=== PATIENT | female | born 1945 | race African-American/Black ===

== ENCOUNTER 2019-04-20 13:47 | Outpatient (CLI) | payer MEDICARE, BC ==
--- NOTE | 2019-04-20 15:45 | RAD ---
2 VIEW ABDOMEN: Date: 04/20/19 Supine and upright views. HISTORY: Right flank pain. FINDINGS: Bowel gas pattern unremarkable. Scattered stool and gas throughout the colon. Small bowel gas is unre markable. There is mild gaseous distention of the stomach. No evidence of free air. No soft tissue ma ss or abnormal calcification. Degenerative spine changes. IMPRESSION: Gaseous distention of the stomach. Unremarkable bowel gas pattern. POS: [facility]
== END 2019-04-20 13:48 | disposition home or self-care (01) ==
LOC: SCSRAD 13:47
PROVIDERS: ATTEND Family Medicine
DX: R10.9 Unspecified abdominal pain (principal); K31.89 Other diseases of stomach and duodenum
CPT/HCPCS: 74019

== ENCOUNTER 2020-01-31 08:09 | Emergency (ER) | payer MEDICARE, BC ==
--- NOTE | 2020-01-31 10:04 | RAD ---
XR Lumbar Spine 2 Or 3 View History: Low back pain Comparison: None. Findings: Moderate levoscoliosis. Severe facet degenerative change with sclerosis and subluxation at L4/L5, 4 mm anterolisthesis. High-grade L2/L3 interspinous narrowing with sclerosis. Bridging lower thoracic anterior osteophytes. Mild L3/L4 and L4/L5 degenerative disc space narrowing with moderate L5/S1 disc space narrowing. Asymmetric left worse than right SI joint degenerative change. Superior pubic symphysis degeneration with sclerosis and large subcortical cysts. Phleboliths in the pelvis. 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 No acute osseous abnormality.
--- NOTE | 2020-01-31 10:10 | RAD ---
RIGHT HIP 2 VIEWS: Date: 01/31/2020 PROVIDED CLINICAL HISTORY: Groin pain. FINDINGS: Vascular calcifications are seen. Lower lumbar spine degenerative changes are partially visualized. N o evidence for fracture or other acute osseous abnormality. Right hip joint space appears preserved. Alignment appears anatomic. IMPRESSION: No evidence for an acute osseous abnormality or significant arthropathy involving the right hip. POS: [facility]
[2020-01-31] MEDS ORDERED: Ketorolac Tromethamine 30 MG/ML VIAL ONE (10:14)
[2020-01-31 10:18] LABS: Bilirubin Negative (Negative); Blood, Urine Negative (Negative); Clarity Clear (Clear); Glucose, Urine (Dipstick) 70 mg/dL (Negative); Ketone, Urine Negative (Negative); Leukocyte Negative Leu/uL (Negative); Nitrite Negative (Negative); Protein, Urine (Dipstick) Negative (Neg-Trace); Specific Gravity, Urine 1.011 (1.002-1.036); Urobilinogen Normal mg/dL (Less than 2)
== END 2020-01-31 12:12 | disposition home or self-care (01) ==
LOC: ERS 08:09
DX: M54.5 Low back pain (principal); E11.9 Type 2 diabetes mellitus without complications; I10 Essential (primary) hypertension; Z79.4 Long term (current) use of insulin; Z79.899 Other long term (current) drug therapy
CPT/HCPCS: 72100; 81003; 87077; 87086; 96372; J1885

== ENCOUNTER 2020-07-29 08:26 | Outpatient (CLI) | payer MEDICARE, BC ==
[2020-07-29 14:33] LABS: #Eosinphils 0.1 10x3/uL (0.0-0.5); #Monocytes 0.4 10x3/uL (0.0-1.1); #Neutrophils 4.9 10x3/uL (1.5-8.4); %Basophils 0.3 % (0.0-2.0); %Eosinophils 0.9 % (0.0-6.0); %Neutrophils 64.7 % (40.0-75.0); Mean Corpuscular HGB CONC 31.7 G/DL (32.0-36.0); Mean Corpuscular Hemoglobin 28.6 PG (27.0-33.0); Mean Corpuscular Volume 90.2 fl (80.0-100.0); Mean Platelet Volume 9.5 fl (7.4-10.4); Platelet Count 280 10x3/uL (130-400); RBC Distribution Width 14.6 % (11.5-14.5); Red Blood Cell (RBC) Count 4.19 10x6/uL (3.90-5.20); White Blood Cell (WBC) Count 7.6 10x3/uL (4.5-11.0)
[2020-07-29 14:54] LABS: ALT (SGPT) 14 U/L (8-55); AST (SGOT) 14 U/L (5-34); Albumin 3.9 g/dL (3.4-4.8); Alkaline Phosphatase 83 U/L (40-110); Anion Gap 14 mmol/L (10-20); BUN (Urea Nitrogen) 23 mg/dL (9.8-20.1); Bilirubin, Total 0.2 mg/dL (0.2-1.2); Calc. Creatinine Clearance 0 mL/min (70-130); Calcium 9.1 mg/dL (7.8-10.44); Carbon Dioxide 24 mmol/L (23-31); Chloride 105 mmol/L (98-107); Globulin 3.2 g/dL (2.4-3.5); Glucose 125 mg/dL (83-110); Potassium 4.5 mmol/L (3.5-5.1); Protein, Total 7.1 g/dL (5.8-8.1); Sodium 138 mmol/L (136-145)
[2020-07-30 06:16] LABS: SARS-CoV-2 PCR by NAA Not Detected (NotDetected)
== END 2020-07-29 08:27 | disposition home or self-care (01) ==
LOC: LABBT 08:26
PROVIDERS: ATTEND Internal Medicine Cardiovascular Disease
DX: Z01.812 Encounter for preprocedural laboratory examination (principal); Z20.822 Contact with and (suspected) exposure to COVID-19
CPT/HCPCS: 80053; 85025; U0003; U0005; 87635

== ENCOUNTER 2020-08-03 09:58 | Day surgery (SDC) | payer MEDICARE, BC ==
[2020-08-01 11:50] VITALS: BMI 31.0
[2020-08-03] MEDS ORDERED: Sodium Chloride 0.9% 10 ML ONE (10:18)
[2020-08-03] MEDS ORDERED: Heparin 0 ML ONE (11:00)
== END 2020-08-03 13:20 | disposition home or self-care (01) ==
LOC: SDC 09:58
PROVIDERS: ATTEND Internal Medicine Cardiovascular Disease
DX: R06.09 Other forms of dyspnea (principal); Z53.09 Procedure and treatment not carried out because of other contraindication; Z88.0 Allergy status to penicillin; Z88.1 Allergy status to other antibiotic agents; Z88.8 Allergy status to other drugs, medicaments and biological substances; Z91.018 Allergy to other foods
CPT/HCPCS: 36416; J1644

== ENCOUNTER 2020-08-05 05:47 | Day surgery (SDC) | payer MEDICARE, BC ==
[2020-08-04 09:34] VITALS: BMI 31.0
[2020-08-05] MEDS ORDERED: Fentanyl 100 MCG/2 ML VIAL ONE (07:44)
[2020-08-05] MEDS ORDERED: Midazolam HCl 2 mg/2 ml Vial ONE (07:44)
[2020-08-05] MEDS ORDERED: Morphine 2 MG/ML VIAL SLOW IVP SCH (09:00)
[2020-08-05] MEDS ORDERED: Morphine 2 MG/ML VIAL ONE (09:03)
[2020-08-05] MEDS ORDERED: Iopamidol 370 76% 100 ML VIAL ONE (09:56)
[2020-08-05] MEDS ORDERED: Acetaminophen/Codeine 30-300mg Tablet ONE (11:39)
[2020-08-05] MEDS ORDERED: Sodium Chloride 0.9% 1,000 ML IV SCH (12:00)
[2020-08-05] MEDS ORDERED: Nitroglycerin 0.4 MG TAB (25 Tab Bottle) SL PRN (12:15)
[2020-08-05] MEDS ORDERED: Acetaminophen/Codeine 30-300mg Tablet PO PRN ×2 (12:15)
[2020-08-05] MEDS ORDERED: Acetaminophen 500 MG TAB ONE (13:46)
[2020-08-05] MEDS ORDERED: Acetaminophen 500 MG TAB PO PRN ×2 (14:36→14:37)
== END 2020-08-05 15:17 | disposition home or self-care (01) ==
LOC: CCL 05:47
PROVIDERS: ATTEND Internal Medicine Cardiovascular Disease
PROC: 4A023N7 Measurement of Cardiac Sampling and Pressure, Left Heart, Percutaneous Approach (ICD-10-PCS; principal; 2020-08-05)
PROC: B2111ZZ Fluoroscopy of Multiple Coronary Arteries using Low Osmolar Contrast (ICD-10-PCS; 2020-08-05)
DX: I25.10 Atherosclerotic heart disease of native coronary artery without angina pectoris (principal); I35.0 Nonrheumatic aortic (valve) stenosis; I10 Essential (primary) hypertension; E11.9 Type 2 diabetes mellitus without complications; E78.5 Hyperlipidemia, unspecified; I83.893 Varicose veins of bilateral lower extremities with other complications; Z79.1 Long term (current) use of non-steroidal anti-inflammatories (NSAID); Z79.4 Long term (current) use of insulin; Z79.899 Other long term (current) drug therapy; Z88.0 Allergy status to penicillin; Z88.8 Allergy status to other drugs, medicaments and biological substances; Z91.018 Allergy to other foods
CPT/HCPCS: 36416; 76942; 93460; 93567; 99152; 99153; J1644; J2250; J2270; J3010; Q9967